=== PATIENT | male | born 1955 | race Caucasian/White ===

== ENCOUNTER 2019-08-19 16:20 | Inpatient (IN) ==
[2019-08-19] MEDS ORDERED: HYDROmorphone INJ 1 MG/ML SYRINGE IV PRN (16:48)
[2019-08-19] MEDS ORDERED: SODIUM CHLORIDE 0.9% 1000ML 1,000 ML IV ONE (16:48)
[2019-08-19] MEDS ORDERED: METOCLOPRAMIDE HCL INJ 5 MG/ML 2 ML VIAL IV STA (16:48)
--- NOTE | 2019-08-19 17:21 | XRay Report ---
XR chest 1V portable CLINICAL HISTORY: Sepsis COMPARISON STUDY: Chest radiograph June 14, 2019. FINDINGS: A left internal jugular Pifqyw-u-Nqwr is in place. There is a left lung calcified granuloma . Cardiomediastinal silhouette is stable. There is no pneumothorax or pleural effusion. Lung volumes are diminished. This is unchanged. Appearance of the chest is unchanged. IMPRESSION: No acute cardiopulmonary findings. Electronically signed by: Shorty Valdez M.D. 08/19/2019 5:20 PM
[2019-08-19 17:24] LABS: Basophils # (auto) 0.01 K/uL (0-0.2); Basophils % (auto) 0.2 %; Eosinophils # (auto) 0.02 K/uL (0-0.5); Eosinophils % (auto) 0.3 %; Hemoglobin 15.8 g/dL (14.0-18.0); Immature Granulocytes # (auto) 0.01 K/uL (0.00-0.02); Immature Granulocytes % (auto) 0.2 %; Lymphocytes # (auto) 1.99 K/uL (1.2-3.4); Lymphocytes % (auto) 30.6 %; Mean Corpuscular Hemoglobin 31.7 pg (25-34); Mean Corpuscular Hgb Conc 35.1 g/dL (32-36); Mean Corpuscular Volume 90.2 fL (80-100); Mean Platelet Volume 8.9 fL (7.4-10.4); Monocytes # (auto) 0.77 K/uL (0.11-0.59); Monocytes % (auto) 11.8 %; Neutrophils % (auto) 56.9 %; Platelet Count 161 K/uL (130-400); RDW Coefficient of Variation 14.9 % (11.5-14.5); RDW Standard Deviation 48.9 fL (36.4-46.3); Red Blood Count 4.99 M/uL (4.7-6.1)
[2019-08-19 17:37] LABS: iSTAT Creatinine 1.4 mg/dl (0.6-1.3); iSTAT Hemoglobin 15.6 g/dl (14.0-18.0); iSTAT Ionized Calcium 1.02 mmol/l (1.12-1.32)
[2019-08-19 17:41] LABS: Alanine Aminotransferase 37 U/L (12-78); Albumin Level 3.4 gm/dl (3.4-5.0); Aspartate Aminotransferase 27 U/L (15-37); BUN Creatinine Ratio 12.8 (10-20); Blood Urea Nitrogen 18 mg/dl (7-18); Calcium 8.8 mg/dl (8.5-10.1); Carbon Dioxide 29 mmol/L (21-32); Chloride 103 mmol/L (98-107); Est GFR (African American) 60.4; Est GFR (Non-African American) 52.1; Glucose 156 mg/dl (70-99); Potassium 3.1 mmol/L (3.5-5.1); Sodium 139 mmol/L (136-145)
[2019-08-19 17:47] LABS: Albumin Globulin Ratio 0.9 (0.9-2); Alkaline Phosphatase 115 U/L (45-117); Bilirubin,Total 0.4 mg/dl (0.2-1); Creatine Kinase 23 U/L (39-308); Creatine Kinase MB < 1.0 ng/ml (0.5-3.6); Globulin 3.8 gm/dl (2.5-4.0); Total Protein 7.2 gm/dl (6.4-8.2); Troponin I < 0.015 ng/ml (0-0.045)
[2019-08-19 18:10] LABS: Prothrombin Time 10.6 Seconds (9.0-12.0)
[2019-08-19] MEDS ORDERED: POTASSIUM CHLORIDE 20 MEQ TABCR PO STA (18:11)
[2019-08-19] MEDS ORDERED: IOVERSOL 100ml IV PRN (18:14)
--- NOTE | 2019-08-19 18:33 | Emergency Department Note ---
Entered by Elsy Khan acting as a scribe for History of Present Illness General Chief complaint: Vomiting Stated complaint: PANCREATIC CANCER, THROWING UP FOR 4 DAYS Time Seen by Provider: 08/19/19 16:31 History of Present Illness Provider complaint: vomiting Onset (ago): day(s) 4 Pain Consistency: + other (worsening) Maximum Pain Intensity: 8 Quality: + other (vomiting) Relieved By: + none Associated symptoms: + other (vomiting is non-stop, nausea, biliary tube put in 4 days ago, blood in bilirubin discharge) Treatments prior to arrival: other (Zofran) The patient is a 64 year old male who presents to the ED with complaints of worsening vomiting that started 4 days ago. Per son, the vomiting has been intermittent the past few days, but it is now non-stop. Per son, the patient had a biliary tube replaced 4 days ago at [facility]. Per son, the patient has pancreatic cancer and receives chemotherapy on Tuesdays every other week. Per son, the patient has blood in his bilirubin discharge. The patient states that he tried to take a Zofran this morning for the nausea but he immediately vomited it up. The patient states that nothing is helping to control the vomiting. Home Medications Home Medications Medication Instructions Recorded Confirmed Type Combigan 1 drp OPB BID 05/24/19 08/19/19 History Lumigan 1 drp OPB PM 05/24/19 08/19/19 History doxazosin 2 mg PO HS 05/24/19 08/19/19 History Allergies Allergy/AdvReac Type Severity Reaction Status Date / Time aspirin AdvReac Mild Nausea Verified 08/19/19 18:06 Past Med/Surg History Social History (Updated 06/13/19 @ 11:53 by Lynette Yepez RN) Preferred Language: Romanian Communication Ability: Effective Forensic Psychiatrist Required: No Beliefs That Will Affect Care: None marital status: Single Current Living Situation: Family Current Living Situation Comment: with son current occupational status: employed Feels Safe at Home: Yes Safety Concerns: Feels Safe At This Time Smoking Status: Never smoker Second Hand Exposure: No ; Hx Alcohol Use: Yes Alcohol type: beer Hx Substance Use: No Review of Systems See HPI for pertinent positives & negatives. and A total of 10 systems reviewed and were otherwise negative Physical Exam Vital Signs Vital Signs - 24 hr 08/19/19 16:25 08/19/19 17:09 08/19/19 17:30 Temperature 36.3 C L Temperature Source Oral Pulse Rate 131 H 93 H Pulse Rate from SpO2 Sensor 92 H 105 H Respiratory Rate 20 13 14 Respiratory Depth Normal Blood Pressure 140/92 Blood Pressure Mean 108 Pulse Oximetry 97 97 98 Oxygen Delivery Method Room Air Sepsis Recent Fever Within 48 Hours No Sepsis New/Unexplained Change in Mental Status No Sepsis Action Taken by Nursing No Action Required 08/19/19 17:31 08/19/19 17:32 08/19/19 18:00 Temperature Temperature Source Pulse Rate 97 H 97 H 93 H Pulse Rate from SpO2 Sensor 97 H 99 H 93 H Respiratory Rate 12 13 18 Respiratory Depth Blood Pressure 123/85 137/95 Blood Pressure Mean 103 100 Pulse Oximetry 95 88 L 97 Oxygen Delivery Method Sepsis Recent Fever Within 48 Hours Sepsis New/Unexplained Change in Mental Status Sepsis Action Taken by Nursing 08/19/19 18:01 08/19/19 18:18 08/19/19 18:19 Temperature Temperature Source Pulse Rate 93 H 89 90 Pulse Rate from SpO2 Sensor 93 H 89 90 Respiratory Rate 22 14 17 Respiratory Depth Blood Pressure 137/91 Blood Pressure Mean 100 Pulse Oximetry 96 98 97 Oxygen Delivery Method Sepsis Recent Fever Within 48 Hours Sepsis New/Unexplained Change in Mental Status Sepsis Action Taken by Nursing 08/19/19 18:30 08/19/19 18:31 08/19/19 19:00 Temperature Temperature Source Pulse Rate 92 H 91 H 87 Pulse Rate from SpO2 Sensor 92 H 92 H 88 Respiratory Rate 19 19 13 Respiratory Depth Blood Pressure 128/86 134/95 Blood Pressure Mean 91 111 Pulse Oximetry 98 98 98 Oxygen Delivery Method Sepsis Recent Fever Within 48 Hours Sepsis New/Unexplained Change in Mental Status Sepsis Action Taken by Nursing 08/19/19 19:01 08/19/19 19:30 08/19/19 19:31 Temperature Temperature Source Pulse Rate 88 88 84 Pulse Rate from SpO2 Sensor 88 88 85 Respiratory Rate 14 14 15 Respiratory Depth Blood Pressure 136/95 Blood Pressure Mean 102 Pulse Oximetry 98 99 99 Oxygen Delivery Method Sepsis Recent Fever Within 48 Hours Sepsis New/Unexplained Change in Mental Status Sepsis Action Taken by Nursing 08/19/19 20:00 08/19/19 20:01 Temperature Temperature Source Pulse Rate 88 84 Pulse Rate from SpO2 Sensor 86 82 Respiratory Rate 15 16 Respiratory Depth Blood Pressure 172/110 H Blood Pressure Mean 127 Pulse Oximetry 96 97 Oxygen Delivery Method Sepsis Recent Fever Within 48 Hours Sepsis New/Unexplained Change in Mental Status Sepsis Action Taken by Nursing GENERAL: Awake, alert, well-appearing, and curled up in a position of comfort. HENT: Normocephalic, atraumatic. Oropharynx unremarkable. EYES: Normal conjunctiva. Sclera non-icteric. NECK: Supple. No nuchal rigidity. FROM. No JVD. RESPIRATORY: Clear to auscultation. CARDIAC: Regular rate, normal rhythm. Extremities warm and well perfused. Pulses equal. ABDOMEN: Soft, non-distended. Mild tenderness to palpation throughout abdomen. No rebound or guarding. No masses. Biliary drain in place, green drainage present. RECTAL: Deferred. MUSCULOSKELETAL: Chest examination reveals no tenderness. The back is symmetrical on inspection without obvious abnormality. There is no CVA tenderness to palpation. No joint edema. LOWER EXTREMITIES: Calves are equal size bilaterally and non-tender. No edema. No discoloration. NEURO: Normal sensorium. No sensory or motor deficits noted. SKIN: No rash or jaundice noted. Course Course 1639: Past medical records reviewed. The patient was evaluated in room B04B. A complete history and physical exam was performed. 1713: I discussed the patient's case with Dr. Loera- [facility]. He states that we absolutely need a cat scan. 1843: I discussed the patient's [facility]. He states that the patient need to be transferred to [facility] for surgery, 1906: I updated the patient and he states that he would prefer to go to [facility] for surgery, 1912: I discussed the patient's case with Dr. Loera from [facility] and he states that the patient is accepted at [facility] but they do not have a bed available, so they would like us to admit the patient here until they do. 2018: I discussed the patient's case with Dr. Shay- [facility] Hospitalist. He will evaluate the patient for further management until [facility] has a bed available. Consultations Consultation #1: I discussed the patient's case with Dr. Loera- [facility]. He states that we absolutely need a cat scan. Time: 17:13 Consultation #2: I discussed the patient's case with [facility]. He states that the patient need to be transferred to [facility] for surgery, Time: 19:43 Consultation #3: I discussed the patient's case with Dr. Shay- [facility] Hospitalist. He will evaluate the patient for further management until [facility] has a bed available. Time: 20:18 Administered Medications Heparin Sodium (Porcine) (Heparin Sodium (Porcine)) 5,000 units SQ Q12 KAY Stop: 09/18/19 22:33 Last Admin: 08/19/19 23:09 Dose: 5,000 units Documented by: [id number] Cosigned by: [id number] Lactated Ringer's (Lr) 1,000 mls @ 125 mls/hr IV .Q8H KAY Stop: 08/20/19 14:33 Last Admin: 08/19/19 22:48 Dose: 125 mls/hr Documented by: [id number] Acetaminophen (Ofirmev) 1,000 mg in 100 mls @ 400 mls/hr IV Q8H PRN PRN Reason: Pain or Fever Stop: 08/22/19 22:33 Last Infusion: 08/19/19 23:07 Dose: 0 mls/hr Documented by: [id number] Admin: 08/19/19 22:42 Dose: 400 mls/hr Documented by: [id number] Ioversol (Optiray 320 100ml) 93 ml IV ONCE PRN PRN Reason: Interaction Checking Stop: 08/23/19 18:13 Last Admin: 08/19/19 18:15 Dose: 93 ml Documented by: [id number] Discontinued Medications Albuterol (Ventolin 0.083% 2.5mg/3ml) 2.5 mg NEB NOW STA Stop: 08/19/19 18:35 Last Admin: 08/19/19 18:47 Dose: Not Given Documented by: [id number] Albuterol (Ventolin Hfa) 2 puffs INH NOW ONE Stop: 08/19/19 18:35 Last Admin: 08/19/19 19:00 Dose: Not Given Documented by: [id number] Hydromorphone HCl (Dilaudid) 1 mg IV Q15M PRN PRN Reason: Pain Stop: 09/02/19 16:47 Last Admin: 08/19/19 17:25 Dose: 1 mg Documented by: [id number] Sodium Chloride (Nss 1000ml) 1,000 mls @ 999 mls/hr IV .Q1H1M ONE Stop: 08/19/19 17:48 Last Infusion: 08/19/19 18:31 Dose: 0 mls/hr Documented by: [id number] Admin: 08/19/19 17:23 Dose: 999 mls/hr Documented by: [id number] Pantoprazole Sodium 80 mg/ (Dextrose) 120 mls @ 480 mls/hr IV 2000 KAY Stop: 08/19/19 22:00 Last Infusion: 08/19/19 21:08 Dose: 0 mls/hr Documented by: [id number] Admin: 08/19/19 20:49 Dose: 480 mls/hr Documented by: [id number] Pantoprazole Sodium 40 mg/ (Dextrose) 100 mls @ 20 mls/hr IV Q5H KAY Stop: 08/20/19 04:44 Last Infusion: 08/20/19 00:30 Dose: 0 mls/hr Documented by: [id number] Admin: 08/19/19 21:08 Dose: 20 mls/hr Documented by: [id number] Piperacillin Sod/Tazobactam Sod (Zosyn) 4.5 gm in 120 mls @ 240 mls/hr IV NOW ONE Stop: 08/19/19 20:07 Last Infusion: 08/19/19 22:13 Dose: 0 mls/hr Documented by: [id number] Admin: 08/19/19 21:28 Dose: 240 mls/hr Documented by: [id number] Lorazepam (Ativan) 1 mg in 2 mls @ 2 mls/min IV NOW STA Stop: 08/19/19 20:07 Last Admin: 08/19/19 20:47 Dose: 2 mls/min Documented by: [id number] Potassium Chloride (K Stevan / Wtr) 10 meq in 100 mls @ 100 mls/hr IV Q1H KAY Stop: 08/19/19 22:59 Last Admin: 08/20/19 00:16 Dose: 100 mls/hr Documented by: [id number] Infusion: 08/20/19 00:16 Dose: 100 mls/hr Documented by: [id number] Admin: 08/19/19 23:17 Dose: 100 mls/hr Documented by: [id number] Famotidine 20 mg/ Syringe 5 mls @ 2.5 mls/min IV ONE ONE Stop: 08/19/19 22:35 Last Admin: 08/19/19 23:07 Dose: 2.5 mls/min Documented by: [id number] Methylprednisolone (Solumedrol) 125 mg IV NOW STA Stop: 08/19/19 18:35 Last Admin: 08/19/19 19:00 Dose: Not Given Documented by: [id number] Metoclopramide HCl (Reglan) 10 mg IV NOW STA Stop: 08/19/19 16:49 Last Admin: 08/19/19 17:22 Dose: 10 mg Documented by: [id number] Phenol (Chloraseptic 1.4% [place]) 2 sprays MT NOW STA Stop: 08/19/19 20:07 Last Admin: 08/19/19 20:47 Dose: 2 sprays Documented by: [id number] Potassium Chloride (Klor-Con M20) 40 meq PO NOW STA Stop: 08/19/19 18:12 Last Admin: 08/19/19 18:39 Dose: 40 meq Documented by: [id number] Medical Decision Making Differential Diagnosis Differential diagnosis: Etiologies such as gastroenteritis, food borne illness, infections, appendicitis, diverticulitis, inflammatory bowel disease, obstruction, GI bleed, biliary pathology, cardiac process, intracranial process, as well as others were entertained. Medical Records Attestation: I reviewed the patient's medical records. Home Medications Current Medication List: was personally reviewed by me Laboratory Data Attestation: I reviewed the patient's lab results. Result diagrams: 08/19/19 16:49 08/19/19 16:49 Lab Results 08/19/19 08/19/19 08/19/19 Range/Units 16:49 16:49 16:49 WBC 6.50 (4.8-10.8) K/uL RBC 4.99 (4.7-6.1) M/uL Hgb 15.8 (14.0-18.0) g/dL POC Hgb (14.0-18.0) g/dl Hct 45.0 (42-52) % POC Hct (42-52) % MCV 90.2 (80-100) fL MCH 31.7 (25-34) pg MCHC 35.1 (32-36) g/dL RDW Std Deviation 48.9 H (36.4-46.3) fL RDW Coeff of June 14.9 H (11.5-14.5) % Plt Count 161 (130-400) K/uL MPV 8.9 (7.4-10.4) fL Immature Gran % (Auto) 0.2 % Neut % (Auto) 56.9 % Lymph % (Auto) 30.6 % Webb % (Auto) 11.8 % Eos % (Auto) 0.3 % Baso % (Auto) 0.2 % Immature Gran # (Auto) 0.01 (0.00-0.02) K/uL Neut # (Auto) 3.70 (1.4-6.5) K/uL Lymph # (Auto) 1.99 (1.2-3.4) K/uL Webb # (Auto) 0.77 H (0.11-0.59) K/uL Eos # (Auto) 0.02 (0-0.5) K/uL Baso # (Auto) 0.01 (0-0.2) K/uL PT Cancelled INR Cancelled APTT Cancelled PTT Ratio Cancelled POC Sodium (135-144) mEq/L Sodium 139 (136-145) mmol/L POC Potassium (3.3-5.0) mEq/L Potassium 3.1 L (3.5-5.1) mmol/L POC Chloride (101-112) mEq/L Chloride 103 (98-107) mmol/L Carbon Dioxide 29 (21-32) mmol/L POC Total CO2 (24-31) mEq/l Anion Gap 7.0 (3-11) POC Anion Gap (16-25) mmol/L POC BUN (7-18) mg/dl BUN 18 (7-18) mg/dl Creatinine 1.43 H (0.6-1.4) mg/dl POC Creatinine (0.6-1.3) mg/dl Est Cr Clr Drug Dosing Not Reportable Est GFR ( Amer) 60.4 Est GFR (Non-Af Amer) 52.1 BUN/Creatinine Ratio 12.8 (10-20) Glucose 156 H (70-99) mg/dl POC Glucose (other) (70-99) mg/dl Lactate (0.4-2.0) mmol/L Calcium 8.8 (8.5-10.1) mg/dl POC Ioniz Calcium Fatuma (1.12-1.32) mmol/l Total Bilirubin 0.4 (0.2-1) mg/dl AST 27 (15-37) U/L ALT 37 (12-78) U/L Alkaline Phosphatase 115 (45-117) U/L Total Creatine Kinase 23 L (39-308) U/L CK-MB (CK-2) < 1.0 (0.5-3.6) ng/ml CK/CKMB % Calc TNP Troponin I < 0.015 (0-0.045) ng/ml Total Protein 7.2 (6.4-8.2) gm/dl Albumin 3.4 (3.4-5.0) gm/dl Globulin 3.8 (2.5-4.0) gm/dl Albumin/Globulin Ratio 0.9 (0.9-2) 08/19/19 08/19/19 08/19/19 Range/Units 16:49 17:19 17:39 WBC (4.8-10.8) K/uL RBC (4.7-6.1) M/uL Hgb (14.0-18.0) g/dL POC Hgb 15.6 (14.0-18.0) g/dl Hct (42-52) % POC Hct 46 (42-52) % MCV (80-100) fL MCH (25-34) pg MCHC (32-36) g/dL RDW Std Deviation (36.4-46.3) fL RDW Coeff of June (11.5-14.5) % Plt Count (130-400) K/uL MPV (7.4-10.4) fL Immature Gran % (Auto) % Neut % (Auto) % Lymph % (Auto) % Webb % (Auto) % Eos % (Auto) % Baso % (Auto) % Immature Gran # (Auto) (0.00-0.02) K/uL Neut # (Auto) (1.4-6.5) K/uL Lymph # (Auto) (1.2-3.4) K/uL Webb # (Auto) (0.11-0.59) K/uL Eos # (Auto) (0-0.5) K/uL Baso # (Auto) (0-0.2) K/uL PT 10.6 INR 1.0 APTT PTT Ratio POC Sodium 139 (135-144) mEq/L Sodium (136-145) mmol/L POC Potassium 3.0 L (3.3-5.0) mEq/L Potassium (3.5-5.1) mmol/L POC Chloride 101 (101-112) mEq/L Chloride (98-107) mmol/L Carbon Dioxide (21-32) mmol/L POC Total CO2 26 (24-31) mEq/l Anion Gap (3-11) POC Anion Gap 15.0 L (16-25) mmol/L POC BUN 18 (7-18) mg/dl BUN (7-18) mg/dl Creatinine (0.6-1.4) mg/dl POC Creatinine 1.4 H (0.6-1.3) mg/dl Est Cr Clr Drug Dosing Est GFR ( Amer) Est GFR (Non-Af Amer) BUN/Creatinine Ratio (10-20) Glucose (70-99) mg/dl POC Glucose (other) 155 H (70-99) mg/dl Lactate 2.0 (0.4-2.0) mmol/L Calcium (8.5-10.1) mg/dl POC Ioniz Calcium Fatuma 1.02 L (1.12-1.32) mmol/l Total Bilirubin (0.2-1) mg/dl AST (15-37) U/L ALT (12-78) U/L Alkaline Phosphatase (45-117) U/L Total Creatine Kinase (39-308) U/L CK-MB (CK-2) (0.5-3.6) ng/ml CK/CKMB % Calc Troponin I (0-0.045) ng/ml Total Protein (6.4-8.2) gm/dl Albumin (3.4-5.0) gm/dl Globulin (2.5-4.0) gm/dl Albumin/Globulin Ratio (0.9-2) Imaging Data Radiologist's Impression: Radiology results as stated below per my review and t he radiologist's interpretation: XR chest 1V portable CLINICAL HISTORY: Sepsis COMPARISON STUDY: Chest radiograph June 14, 2019. FINDINGS: A left internal jugular Cjkwhb-k-Ncob is in place. There is a left lung calcified granuloma. Cardiomediastinal silhouette is stable. There is no pneumothorax or pleural effusion. Lung volumes are diminished. This is unchanged. Appearance of the chest is unchanged. IMPRESSION: No acute cardiopulmonary findings. Electronically signed by: Shorty Valdez M.D. 08/19/2019 5:[address] OF THE ABDOMEN AND PELVIS WITH CONTRAST CLINICAL HISTORY: Abdominal pain. Biliary drain. Pancreatic cancer. COMPARISON STUDY: CT of the abdomen and pelvis May 24, 2019. TECHNIQUE: Following IV administration of Optiray-320, axial images of the abdomen and pelvis were obtained from the lung bases to the proximal femurs. Images were reviewed in the axial, sagittal, and coronal planes. IV contrast was administered without complication. Automated exposure control was utilized for the study. A dose lowering technique was utilized adhering to the principles of ALARA. CT DOSE: 889.95 mGy.cm FINDINGS: Left-sided gynecomastia is noted. There is mild elevation of the left hemidiaphragm. Calcified granulomas within the liver are noted. No suspicious hepatic lesions are identified. A percutaneous biliary drain extending through the lateral segment of the left lobe is appropriately positioned. The tip is within the duodenum. There is no biliary ductal dilatation. There is gas and a stone within the gallbladder which is not distended. There is adenomyomatosis of the gallbladder fundus. Mild pancreatic ductal dilatation is noted with pancreatic glandular atrophy. Mild peripancreatic infiltration is noted. There is no peripancreatic fluid collection. Mildly enlarged peripancreatic lymph nodes have slightly decreased in size since CT of May 24, 2019. Index node measures 1.3 cm in short axis diameter. It previously measured 1.5 cm. There has been interval development of moderate gastric distention. The stomach is fluid- filled. A 1.5 cm fluid and gas containing focus adjacent to the pancreatic head likely reflects a portion of the duodenum. Adjacent caliber change of the duodenum is noted. These findings raise the possibility of a duodenal obstruc tion. Major vasculature is patent. There is no bowel obstruction. The appendix is normal. There is oral contrast within the distal colon and rectum. Prostate is moderately enlarged. There are no suspicious osseous lesions. IMPRESSION: 1. Distended fluid-filled stomach, a new finding since prior CT with apparent caliber change at the level of the second duodenum. The findings raise the possibility of a duodenal obstruction. 2. Appropriately positioned percutaneous biliary catheter. No biliary ductal dilatation. Gas and a stone within the gallbladder. 3. Mild pancreatic ductal dilatation with apparent caliber change within the pancreatic head, possibly due to the known tumor which is not well visualized on this exam. Mild peripancreatic infiltration which could be correlated with lipase. 4. Interval decrease in size of peripancreatic and mesenteric lymph nodes since prior exam. Electronically signed by: Shorty Valdez M.D. 08/19/2019 6:34 PM Blood Pressure Blood Pressure Findings: Elevated blood pressure Blood Pressure Disposition: further management by hospitalist KRYSTINA Ling This is a 64-year-old male who presents emergency department complaining of nausea and severe vomiting ever since a biliary stent was placed. I will note that the patient does not have an elevation in his white blood cell count has a normal renal profile has a normal liver profile. Patient's potassium was repleted here via IV in the emergency department. Using shared medical decision making with the patient I recommended a CAT scan of the abdomen pelvis. The patient at first wished for me to discuss this with [facility]. This was done with the surgeon on-call who recommended a CAT scan of the abdomen and pelvis. CAT scan of the abdomen pelvis is concerning for a stomach obstruction at the duodenum. Because of this I did recommend an NG tube. I did discuss my findings with [facility] is that this is where the family would like to go however [facility] does not have a bed available. Based on this I did discuss the case with the hospitalist service pending a transfer. Patient and family were in agreement with the treatment plan. Impression & Plan Duodenal obstruction, Pancreatic cancer, Hypertension Discharge Plan Visit Data *Final* Discharge Date/Time: 08/19/19 22:15 Chief Complaint: Vomiting Stated Complaint: PANCREATIC CANCER, THROWING UP FOR 4 DAYS ED Provider: Savage Thomas Discharge Problem: Duodenal obstruction, Pancreatic cancer, Hypertension Patient Disposition: Admitted As Inpatient Discharge Instructions Interventions: ED Discharge Assessment Last Done: 08/19/19 22:15 Discharge Problem: Pancreatic cancer Qualifiers: Pancreatic malignancy location: unspecified Qualified Code(s): C25.9 - Malignant neoplasm of pancreas, unspecified Hypertension Qualifiers: Hypertension type: unspecified Qualified Code(s): I10 - Essential (primary) hypertension The scribe's documentation has been prepared under my direction and personally reviewed by me in its entirety. I confirm that the note above accurately reflects all work, treatment, procedures, and medical decision making performed by me.
[2019-08-19] MEDS ORDERED: methylPREDNISolone 125 MG/2 ML VIAL IV STA (18:34)
[2019-08-19] MEDS ORDERED: ALBUTEROL 0.083% NEBU SOLN 3 ML VIAL NEB STA (18:34)
[2019-08-19] MEDS ORDERED: ALBUTEROL HFA 8 GM INHALER INH ONE (18:34)
--- NOTE | 2019-08-19 18:36 | CT Scan Report ---
CT OF THE ABDOMEN AND PELVIS WITH CONTRAST CLINICAL HISTORY: Abdominal pain. Biliary drain. Pancreatic cancer. COMPARISON STUDY: CT of the abdomen and pelvis May 24, 2019. TECHNIQUE: Following IV administration of Optiray-320, axial images of the abdomen and pelvis were ob tained from the lung bases to the proximal femurs. Images were reviewed in the axial, sagittal, and c oronal planes. IV contrast was administered without complication. Automated exposure control was uti lized for the study. A dose lowering technique was utilized adhering to the principles of ALARA. CT DOSE: 889.95 mGy.cm FINDINGS: Left-sided gynecomastia is noted. There is mild elevation of the left hemidiaphragm. Calcif ied granulomas within the liver are noted. No suspicious hepatic lesions are identified. A percutaneo us biliary drain extending through the lateral segment of the left lobe is appropriately positioned. The tip is within the duodenum. There is no biliary ductal dilatation. There is gas and a stone withi n the gallbladder which is not distended. There is adenomyomatosis of the gallbladder fundus. Mild pa ncreatic ductal dilatation is noted with pancreatic glandular atrophy. Mild peripancreatic infiltrati on is noted. There is no peripancreatic fluid collection. Mildly enlarged peripancreatic lymph nodes have slightly decreased in size since CT of May 24, 2019. Index node measures 1.3 cm in short a xis diameter. It previously measured 1.5 cm. There has been interval development of moderate gastric distention. The stomach is fluid-filled. A 1.5 cm fluid and gas containing focus adjacent to the panc reatic head likely reflects a portion of the duodenum. Adjacent caliber change of the duodenum is not ed. These findings raise the possibility of a duodenal obstruction. Major vasculature is patent. Ther e is no bowel obstruction. The appendix is normal. There is oral contrast within the distal colon and rectum. Prostate is moderately enlarged. There are no suspicious osseous lesions. IMPRESSION: 1. Distended fluid-filled stomach, a new finding since prior CT with apparent caliber change at the l evel of the second duodenum. The findings raise the possibility of a duodenal obstruction. 2. Appropriately positioned percutaneous biliary catheter. No biliary ductal dilatation. Gas and a st one within the gallbladder. 3. Mild pancreatic ductal dilatation with apparent caliber change within the pancreatic head, possibl y due to the known tumor which is not well visualized on this exam. Mild peripancreatic infiltration which could be correlated with lipase. 4. Interval decrease in size of peripancreatic and mesenteric lymph nodes since prior exam. Electronically signed by: Shorty Valdez M.D. 08/19/2019 6:34 PM
[2019-08-19] MEDS ORDERED: PIPERACILL/TAZOBAC CONSULT ACTIVE PRN (19:38)
[2019-08-19] MEDS ORDERED: PIPERACILLIN/TAZOBACTAM 4.5 GM/120 ML BAG IV ONE (19:38)
[2019-08-19] MEDS ORDERED: PANTOprazole 40 MG in DEXTROSE 5% 100 ML IV SCH (19:45)
--- NOTE | 2019-08-19 19:55 | History & Physical Report ---
Date of Service August 19, 2019 Assessment & Plan (1) Duodenal obstruction: Mr. Milton is a 64-year-old male with a past medical history of pancreatic adenocarcinoma, hypertension, hypercholesterolemia, BPH and obstructive sleep apnea who presents to [facility] due to a 5-day history of feeling unwell, with abdominal pain, and nausea. Today, he had 5 episodes of vomiting, without the presence of blood, which prompted him to come into the emergency department. ED course: 10 mg IV Reglan, 1 L normal saline bolus, 40 mEq potassium chloride, Ventolin nebulizer, 125 mg IV Solu-Medrol, Ventolin inhaler, 1 mg IV Dilaudid, 80 mg IV pantoprazole bolus, and drip initiated, 4.5 g IV Zosyn, 10 mEq of potassium chloride IV x2 bags Duodenal obstruction -Admit to med/surg -CT abdomen and pelvis shows distended fluid-filled stomach, suggestive of d uodenal obstruction. His percutaneous biliary catheter is appropriately positioned. -N.p.o., NG tube placed in ER, confirming placement with x-ray -Awaiting transfer to [facility]. They do not have a bed as yet, but have accepted him in transfer -IV Tylenol and Dilaudid as needed for pain, maintenance IVF started, Zofran as needed for nausea -GI prophylaxis with IV famotidine History of pancreatic cancer -Follows with [facility] -Had a biliary tube replaced 08/15/2019 -Currently on round 3 out of 12 of chemotherapy. Due to receive next chemotherapy on 08/22/2019 Acute kidney injury -Creatinine 1.43 on admission, elevated from normal baseline -Likely prerenal etiology in the setting of poor appetite and vomiting -Given IVF in ER, will continue maintenance IVF with LR at 125 mLs per hour x2 bags -Recheck BMP in a.m. Hypokalemia -Potassium 3.1 on admission -10 mEq of potassium chloride ordered IV x2 bags in ER -recheck tomorrow Hypertension -Hold home antihypertensives given n.p.o -Blood pressure was initially elevated upon arrival to emergency department, however has improved with pain control -Hydralazine 10 mg IV as needed for systolic blood pressure greater than 180 Hyperlipidemia -Patient does not appear to be on medications for this at home BPH -Hold home doxazosin given n.p.o. Obstructive sleep apnea -Wears CPAP at home, will not order here given patient currently has NG tube in place CODE STATUS: Full DVT prophylaxis: Heparin 5000 units subcutaneous twice daily Disposition: Admit to med/surg. Awaiting bed at [facility] (2) Pancreatic cancer: (3) Hypertension: (4) Hyperlipidemia: (5) Obstructive sleep apnea: (6) BPH (benign prostatic hyperplasia): History of Present Illness Chief Complaint: Small bowel obstruction Primary Care Provider: Vincent Marie Mr. Milton is a 64-year-old male with a past medical history of pancreatic adenocarcinoma, hypertension, hypercholesterolemia, BPH and obstructive sleep apnea who presents to [facility] due to a 5-day history of feeling unwell, with abdominal pain, and nausea. Today, he had 5 episodes of vomiting, without the presence of blood, which prompted him to come into the emergency department. He notes that he also has diffuse abdominal pain. He states his last bowel movement was this morning, however was smaller than usual for him. He has had poor appetite since Wednesday, and is only tolerated small amounts of soup and some water. He denies any fever or chills, or urinary symptoms. With regards to his pancreatic adenocarcinoma, this was diagnosed in May 2019. He follows with [facility], and most recently had a biliary tube replacement on 08/15/2019. He is receiving chemotherapy. He is currently on his third out of 12 cycle of chemotherapy, and is due to receive this on 08/22/2019. Allergies Allergy/AdvReac Type Severity Reaction Status Date / Time aspirin AdvReac Mild Nausea Verified 08/19/19 18:06 Home Medications Home Medications Medication Instructions Recorded Confirmed Type Combigan 1 drp OPB BID 05/24/19 08/19/19 History Lumigan 1 drp OPB PM 05/24/19 08/19/19 History doxazosin 2 mg PO HS 05/24/19 08/19/19 History Past Med/Surg History Social History (Updated 06/13/19 @ 11:53 by Lynette Yepez RN) Preferred Language: Kazakh Communication Ability: Effective Smearer Required: No Beliefs That Will Affect Care: None marital status: Single Current Living Situation: Family Current Living Situation Comment: with son current occupational status: employed Feels Safe at Home: Yes Safety Concerns: Feels Safe At This Time Smoking Status: Never smoker Second Hand Exposure: No ; Hx Alcohol Use: Yes Alcohol type: beer Hx Substance Use: No Review of Systems Constitutional: + fatigue and + anorexia; no fever and no chills Respiratory: no cough and no dyspnea Cardiovascular: no chest pain, no syncope, no edema and no calf pain Gastrointestinal: + abdominal pain, + nausea and + vomiting; no change in bowel habits and no melena Genitourinary: no dysuria and no difficulty urinating Integumentary: no rash and no lesions Physical Exam Constitutional: WD/WN, vitals as above NG tube in place Eyes: PERRL, conjunctivae normal, anicteric sclerae ENMT: external ear and nose normal, oropharynx normal Respiratory: normal respiratory effort, lungs clear to auscultation Cardiovascular: RRR, no murmur, no edema Gastrointestinal (Abdomen): Inspection/Auscultation: + abdomen distended Percussion/Palpation: + abdomen tender (Tender throughout abdomen); no guarding and abdomen not rigid Biliary drain in place, draining dark green/brown liquid Musculoskeletal: no cyanosis or clubbing, extremities motor strength 5/5 Skin: no rashes, warm and dry Neurologic: PERRL, EOMI, accommodation nl, no face palsy, no dysarthria Psychiatric: A+Ox3, euthymic affect Results & Data Vital Signs (Past 12 Hours) Vital Signs Temp Pulse Resp BP Pulse Ox 08/19/19 18:18 89 14 137/91 98 08/19/19 18:01 93 H 22 96 08/19/19 18:00 93 H 18 137/95 97 08/19/19 17:32 97 H 13 88 L 08/19/19 17:31 97 H 12 123/85 95 08/19/19 17:30 14 98 08/19/19 17:09 93 H 13 97 08/19/19 16:25 36.3 C L 131 H 20 140/92 97 Supervising Physician Co-Signing Physician Notes Attending addendum: I have physically seen this patient, have supervised the medical residents activities, and agree with the H&P unless as otherwise noted. Assessment and Plan: Duodenal obstruction/status post percutaneous biliary catheter/pancreatic cancer- Admit to [facility] N.p.o. NG tube to low intermittent suction Zosyn 4.5 g IV every 8 hours. Famotidine 20 mg IV every 12 hours. For transfer to [facility] where initial surgery and procedures have been performed. Chemotherapy round 3 of 12 completed. Follow serial CBC with differential, chemistry profile, magnesium levels. Follow blood cultures Dilaudid 0.5 mg IV every 3 hours as needed severe pain. Remainder of orders and notations as noted.. Resident Activity Tracking Resident Involvement: Resident Care Provided Care Provided: Adult [facility] Medicine
[2019-08-19] MEDS ORDERED: PANTOprazole 80 MG in DEXTROSE 5% 100 ML IV SCH (20:00)
[2019-08-19] MEDS ORDERED: CHLORASEPTIC 1.4% SOLN 180 ML BTL MT STA (20:06)
[2019-08-19] MEDS ORDERED: LORazepam 1 MG/2 ML VIAL IV STA (20:06)
--- NOTE | 2019-08-19 21:49 | XRay Report ---
KUB CLINICAL HISTORY: NG placement COMPARISON STUDY: CT of the abdomen and pelvis performed earlier today. FINDINGS: There is contrast within both collecting systems from recent contrast-enhanced CT. The tip of the nasogastric tube projects over the body of the stomach. IMPRESSION: Tip of nasogastric tube projects over the body of the stomach. Electronically signed by: Shorty Valdez M.D. 08/19/2019 9:47 PM
[2019-08-19] MEDS ORDERED: HydrALAZINE HCL 20 MG/ML VIAL IV PRN (22:34)
[2019-08-19] MEDS ORDERED: FAMOTIDINE 20 MG in SYRINGE 3 ML IV ONE (22:34)
[2019-08-19] MEDS: ACETAMINOPHEN 1,000 MG/100 ML VIAL IV PRN (22:42)
[2019-08-19] MEDS: LACTATED RINGER'S 1,000 ML IV SCH (22:48)
[2019-08-19] MEDS: HEPARIN SOD 5,000 UNIT/0.5 ML VIAL SQ SCH (23:09)
[2019-08-19] MEDS: POTASSIUM CHLORIDE / WTR 10 MEQ/100 ML PLCT IV SCH (23:17)
[2019-08-20] MEDS ORDERED: HEPARIN 100 UNIT/ML 5ML FLUSH FLUSH PRN (00:13)
[2019-08-20] MEDS: POTASSIUM CHLORIDE / WTR 10 MEQ/100 ML PLCT IV SCH (00:16)
[2019-08-20] MEDS: ONDANSETRON INJ 2 MG/ML 2 ML VIAL IV PRN ×3 (02:31→14:07)
[2019-08-20] MEDS: HYDROmorphone INJ 0.5 MG/0.5 ML SYR IV PRN ×4 (02:32→15:30)
[2019-08-20] MEDS: LACTATED RINGER'S 1,000 ML IV SCH ×3 (06:32→21:09)
[2019-08-20 06:59] LABS: BUN Creatinine Ratio 11.1 (10-20); Calcium 7.8 mg/dl (8.5-10.1); Creatinine Clr Calc Pharmacy 67.5 ml/min; Est GFR (African American) 69.7; Est GFR (Non-African American) 60.2; Potassium 3.7 mmol/L (3.5-5.1)
[2019-08-20] MEDS: BRIMONIDINE TARTRATE/TIMOLOL OPB SCH ×2 (08:02→21:11)
[2019-08-20] MEDS: BRINZOLAMIDE (AZOPT) OPS 10 ML BTL OPL SCH ×2 (08:02→21:12)
[2019-08-20] MEDS: HEPARIN SOD 5,000 UNIT/0.5 ML VIAL SQ SCH ×2 (08:03→21:20)
[2019-08-20] MEDS: ACETAMINOPHEN 1,000 MG/100 ML VIAL IV PRN ×2 (08:15→18:27)
[2019-08-20] MEDS ORDERED: Nursing to Pharmacy Communication ONE (11:07)
--- NOTE | 2019-08-20 16:51 | Hospitalist Progress Note ---
Date of Service August 20, 2019 Assessment & Plan (1) Duodenal obstruction: Mr. Milton is a 64-year-old male with a past medical history of pancreatic adenocarcinoma admitted 08/19/19 for evaluation of 5-day history of abdominal pain and nausea, found to have duodenal obstruction on CT. He receives his oncologic care at [facility] - he was accepted as a transfer there, awaiting bed availability. Duodenal obstruction -CT of abdomen and pelvis on admission showed distended fluid-filled stomach, suggestive of duodenal obstruction. - it was discussed with patient that plausible cause of obstruction was proximal metastasis of known adenocarcinoma, although this would likely be explored via endoscopic procedure or MRI once he gets to [place] - percutaneous biliary catheter is appropriately positioned per KUB study -N.p.o., NG tube in place with suction; appropriate position confirmed via Chest x-ray -IV Tylenol and Dilaudid as needed for pain, maintenance IVF, Zofran as needed for nausea -GI prophylaxis with IV famotidine History of pancreatic cancer - currently undergoing chemo -Follows with [facility] -Had a biliary tube replaced 08/15/2019 -on round 3 out of 12 of chemotherapy. Due to receive next chemotherapy on 08/22/2019 Acute kidney injury -resolving -Creatinine 1.43 on admission (elevated from known baseline); down to 1.22 today -Likely prerenal etiology in the setting of poor PO intake and recent vomiting -continue maintenance IVF with LR at 125 mLs per hour - BMP in am Hypokalemia - resolved -Potassium 3.1 on admission, improved to 3.7 today Hypertension -Hold home antihypertensive (doxazosin) given n.p.o status -BP 138/84 -Hydralazine 10 mg IV as needed for systolic blood pressure greater than 180 Hyperlipidemia -Patient does not appear to be on medications for this at home BPH -Hold home doxazosin given n.p.o. Obstructive sleep apnea -Wears CPAP at home, will not order here given patient currently has NG tube in place CODE STATUS: Full FENGI: NPO DVT prophylaxis: Heparin 5000 units subcutaneous twice daily Disposition: Admit to med/surg. Awaiting bed at [facility] (2) Pancreatic cancer: (3) Hypertension: (4) Hyperlipidemia: (5) Obstructive sleep apnea: (6) BPH (benign prostatic hyperplasia): Supervising Physician Co-Signing Physician Notes I personally examined the patient and verified all friedman points of history and exam, discussed case, and agree with decision making with Dr Hernandez. Feeling okay. Still has NG tube in and notes that he is needing pain and nausea medicines with a good deal of frequency, but that overall his symptoms are controlled. Awaiting transfer to [place], accepted but does not yet have a bed available. Vitals noted, in general he is awake and alert pleasant no distress. HEENT normocephalic atraumatic mucous membranes moist. NG tube in place without signs of breakdown. Right now there is nothing in the canister, but it looks clean li ke it is just been changed. His abdomen is fortunately quite soft nondistended nontender no focal tenderness no masses no organomegaly no guarding no rebound no rigidity. Skin shows no rashes no pallor or icterus. Duodenal obstructionunfortunately the biggest concern is that this would relate to his pancreatic cancer. Fortunately he has been stabilized/temporized by NG tube, antiemetics, pain control, supportive carecontinue all of the above pending bed availability at [facility]. Otherwise as above. DVT prophylaxisheparin subcu. Subjective No acute events since admission. Reports good pain/nausea control. NPO and connected to go NG suction, so not ambulting today. Review of Systems Review of Systems: All systems reviewed & are unremarkable except as noted in HPI & below Physical Exam Constitutional: WD/WN, vitals as above + ill appearing and cooperative Eyes: + anicteric sclerae ENMT: external ear and nose normal, oropharynx normal NG tube in place Neck: normal visual inspection Respiratory: normal respiratory effort, lungs clear to auscultation Auscultation: no rales, no rhonchi, no wheezes and no pleural rub Cardiovascular: RRR, no murmur, no edema Heart Sounds: normal S1 and normal S2 Gastrointestinal (Abdomen): Inspection/Auscultation: + abdomen distended, + abdominal surgical drain present (percutaneous bilary catheter placed; draining bilious fluid ) and + hypoactive bowel sounds Percussion/Palpation: abdomen soft; abdomen nontender, no guarding, no abdominal mass and no ascites Skin: no rashes, warm and dry Neurologic: No focal deficits Psychiatric: A+Ox3, euthymic affect Results & Data Vital Signs (Past 12 Hours) Vital Signs Temp Pulse Pulse Resp BP BP Pulse Ox 08/20/19 15:34 36.4 C L 54 L 20 138/84 97 08/20/19 11:23 36.5 C 54 L 18 126/83 97 08/20/19 07:13 36.5 C 68 18 143/87 H 93 Resident Activity Tracking Resident Involvement: Resident Care Provided Care Provided: Adult Hospital Medicine (1) Pancreatic cancer Pancreatic malignancy location: unspecified Qualified Code(s): C25.9 - Malignant neoplasm of pancreas, unspecified (2) Hypertension Hypertension type: unspecified Qualified Code(s): I10 - Essential (primary) hypertension
--- NOTE | 2019-08-20 17:04 | Billing Data ---
Date of Service August 20, 2019 Coding Level of Care Code 44504 Subseq Hosp Care Lvl 3
--- NOTE | 2019-08-20 21:01 | Billing Data ---
Date of Service August 20, 2019 Coding Level of Care Code 39034 Subseq Hosp Care Lvl 3
[2019-08-20] MEDS: FAMOTIDINE 20 MG in SYRINGE 3 ML IV SCH (22:46)
[2019-08-21] MEDS: HYDROmorphone INJ 0.5 MG/0.5 ML SYR IV PRN (00:38)
[2019-08-21] MEDS: LACTATED RINGER'S 1,000 ML IV SCH ×3 (05:12→20:49)
[2019-08-21] MEDS: ACETAMINOPHEN 1,000 MG/100 ML VIAL IV PRN (05:12)
[2019-08-21] MEDS: BRINZOLAMIDE (AZOPT) OPS 10 ML BTL OPL SCH ×2 (09:04→20:50)
[2019-08-21] MEDS: BRIMONIDINE TARTRATE/TIMOLOL OPB SCH ×2 (09:04→20:50)
[2019-08-21] MEDS: HEPARIN SOD 5,000 UNIT/0.5 ML VIAL SQ SCH ×2 (09:05→20:50)
--- NOTE | 2019-08-21 09:33 | Student Report ---
[facility] Med Student H&P Date of Service Date of Service: August 21, 2019 ROS ROS: Denies n/v Endorses pain control: abdominal pain at 09/15 Physical Exam Physical Exam: General: Patient is a well-appearing male in no acute distress with an NG tube CV: RRR, S1 and S2 appreciated, no MRG Pulmonary: lungs clear bilaterally to auscultation Abdominal: soft, + distended, no tenderness to palpation, +hypoactive bowel sounds, biliary drain present, is draining dark green fluid. Code/VTE Code/VTE: Full code DVT prophylaxis: Heparin A&P A&P: #Duodenal Obstruction: continue to keep him NPO, continue maintenance fluids, IV Tylenol and Dilaudid prn, IV famotidine. Check on status of bed at [place]. #Pancreatic cancer: continue to monitor #HTN: continue to monitor
--- NOTE | 2019-08-21 10:50 | Medical Student Progress Note ---
Date of Service August 21, 2019 Assessment & Plan (1) Duodenal obstruction: Patient is a 64 year old male with a recent diagnosis of pancreatic cancer who presented to the the emergency department 2 days ago with a 4-day history of vomiting and abdominal pain; he has been given supportive therapy (NPO, NG tube, IV fluids, pain management) with a goal of stabilization until transfer to [facility] for further evaluation. Assessment and Plan: Duodenal Obstruction -supportive therapy: currently NPO, has NG tube in place with suction, IV fluids, IV famotidine, IV Tylenol and Dilaudid prn for pain -transfer to [facility] has been approved, awaiting bed MAG -creatinine was 1.43 on admission, 1.27 as of 08/20; was probably prerenal due to dehydration secondary to vomiting HTN -takes doxazosin at home, held due to being NPO. -BP wnl until this morning, when it was 150/92. If systolic greater than 180 with or without symptoms, consider IV Hydralazine prn Pancreatic Cancer -on round 11/15 of chemo, due for next round 08/22, but as of this morning, ca ncelled the appt. BPH -takes doxazosin at home, held due to NPO status Hyperlipidemia -no home medications Glaucoma: -continue eye drops as prescribed DVT Prophylaxis: -continue heparin for DVT prophylaxis (2) Pancreatic cancer: Pancreatic malignancy location: unspecified Qualified Code(s): C2 5.9 - Malignant neoplasm of pancreas, unspecified (3) Hypertension: Hypertension type: unspecified Qualified Code(s): I10 - Essential (primary) hypertension (4) Hyperlipidemia: Supervising Attestation Medical Student Supervision Note: I independently interviewed and examined the patient and verified the friedman history and physical, reviewed labs and image studies, discussed the case with Marizol Sanchez and agree with the findings and care plan. Subjective History of Present Illness: Patient presented to emergency department on 08/19 with 4-day history of worsening vomiting and abdominal pain. A CT scan performed in the ER suggests duodenal obstruction. The patient has pancreatic cancer, for which he is receiving surgical treatment at [facility] and chemotherapy here at the cancer center. He would prefer to receive surgical care for the obstruction at [place]. His transfer has been approved, and we are currently waiting for a bed. Review of Systems Gastrointestinal: + abdominal pain (09/15); no nausea Physical Exam Constitutional: well developed and well nourished; no acute distress NG tube in left nostril Respiratory: normal respiratory effort, lungs clear to auscultation Cardiovascular: Rate/Rhythm: regular rate and regular rhythm Heart Sounds: normal S1 and normal S2; no gallop, no murmur and no cardiac rub Gastrointestinal (Abdomen): Inspection/Auscultation: + hypoactive bowel sounds Percussion/Palpation: abdomen nontender biliary drain present, draining dark green fluid Results & Data Vital Signs (Past 12 Hours) Vital Signs Temp Pulse Resp BP Pulse Ox 08/21/19 07:14 36.5 C 58 L 18 150/92 H 94 08/20/19 22:51 36.8 C 53 L 20 137/82 97
--- NOTE | 2019-08-21 14:34 | Discharge Summary ---
Date of Service August 24, 2019 Admission HPI Per Admitting Provider Mr. Milton is a 64-year-old male with a past medical history of pancreatic adenocarcinoma, hypertension, hypercholesterolemia, BPH and obstructive sleep apnea who presents to [facility] due to a 5-day history of feeling unwell, with abdominal pain, and nausea. Today, he had 5 episodes of vomiting, without the presence of blood, which prompted him to come into the emergency department. He notes that he also has diffuse abdominal pain. He states his last bowel movement was this morning, however was smaller than usual for him. He has had poor appetite since Wednesday, and is only tolerated small amounts of soup and some water. He denies any fever or chills, or urinary symptoms. With regards to his pancreatic adenocarcinoma, this was diagnosed in May 2019. He follows with [facility], and most recently had a biliary tube replacement on 08/15/2019. He is receiving chemotherapy. He is currently on his third out of 12 cycle of chemotherapy, and is due to receive this on 08/22. Admission Exam Per Admitting Provider Constitutional: WD/WN, vitals as above NG tube in place Eyes: PERRL, conjunctivae normal, anicteric sclerae ENMT: external ear and nose normal, oropharynx normal Respiratory: normal respiratory effort, lungs clear to auscultation Cardiovascular: RRR, no murmur, no edema Gastrointestinal (Abdomen): Inspection/Auscultation: + abdomen distended Percussion/Palpation: + abdomen tender (Tender throughout abdomen); no guarding and abdomen not rigid Biliary drain in place, draining dark green/brown liquid Musculoskeletal: no cyanosis or clubbing, extremities motor strength 5/5 Skin: no rashes, warm and dry Neurologic: PERRL, EOMI, accommodation nl, no face palsy, no dysarthria Psychiatric: A+Ox3, euthymic affect Principal Diagnosis Duodenal Obstruction Discharge Exam Constitutional WD/WN, vitals as above well developed and cooperative; no acute distress Eyes PERRL, conjunctivae normal, anicteric sclerae ENMT external ear and nose normal, oropharynx normal Nose: + external nose abnormality (NG tube placement in L nostril) Neck normal visual inspection and trachea midline Respiratory normal respiratory effort, lungs clear to auscultation Auscultation: no rales, no rhonchi and no wheezes Cardiovascular RRR, no murmur, no edema Heart Sounds: normal S1 and normal S2 Gastrointestinal (Abdomen) Inspection/Auscultation: abdomen normal to inspection, + abdominal surgical drain present (percutaneous bilary catheter placed; draining green bilious fluid ) and + hypoactive bowel sounds Percussion/Palpation: abdomen soft; abdomen nontender, no guarding, abdomen not rigid, no abdominal mass and no ascites Skin no rashes, warm and dry no jaundice Neurologic PERRL, EOMI, accommodation nl, no face palsy, no dysarthria Psychiatric A+Ox3, euthymic affect Discharge Data Allergies Allergy/AdvReac Type Severity Reaction Status Date / Time aspirin AdvReac Mild Nausea Verified 08/19/19 18:06 Consultations 08/19/19 19:24 ED Decision to Admit Stat Ordered Studies 08/19/19 16:46 CT abd pelvis IV con only Stat Hospital Course (1) Duodenal obstruction: Mr. Milton is a 64-year-old male with a past medical history of pancreatic adenocarcinoma admitted 08/19/19 for evaluation of 5-day history of abdominal pain and nausea, found to have duodenal obstruction on CT. He receives his oncologic care at [facility] - now being transferred. Duodenal obstruction - CT of abdomen and pelvis on admission showed distended fluid-filled stomach, suggestive of duodenal obstruction. - it was discussed with patient that plausible cause of obstruction was proximal metastasis of known adenocarcinoma. - percutaneous biliary catheter appropriately positioned per KUB study - Kept N.p.o., NG tube in place with suction; appropriate position confirmed via Chest x-ray - IV Tylenol and Dilaudid as needed for pain, Zofran as needed for nausea - GI prophylaxis with IV famotidine -KUB dated 08/22 notes improvement of stomach distention and duodenal obstruction -was started on TPN -While waiting for transfer - GI consulted, -assessment: duodenal obstruction most likely from advancement of his pancreatic tumor -reviewed options: duodenal stent vs. bypass -recommends evaluation at [place] -in meantime, continue nasogastric decompression, acid-suppressing medication, and TPN MAG -creatinine was 1.43 on admission, has since trended downward and remains wnl -likely prerenal due to dehydration secondary to vomiting -resolved HTN -takes doxazosin at home, held due to being NPO. -If systolic greater than 180 with or without symptoms, consider IV Hydralazine prn Pancreatic Cancer -on round 11/15 of chemo, due for next round 08/22, but had to cancel due to hospitalization BPH -takes doxazosin at home, held due to NPO status Glaucoma: -continue eye drops as prescribed Obstructive sleep apnea -Wears CPAP at home, not ordered due to NG tube placement. DVT Prophylaxis: continued heparin for DVT prophylaxis inpatient FEN/GI: NG tube in place, NPO, TPN discontinued prior to DC Code Status: Full code Dispo: Transfer to [facility] (2) Pancreatic cancer: (3) Hypertension: (4) Obstructive sleep apnea: (5) BPH (benign prostatic hyperplasia): Total Time Total Time Spent Total Time Spent (In Minutes): see attending attestation Discharge Plan Discharge Items Patient Disposition: [facility] Reason For Visit: SMALL BOWEL OBSTRUCTION,MAG Discharge Diagnosis: Small Bowel Obstruction Condition on Discharge: Fair Activity: Resume your previous activity Non-emergency contact: Primary Care Provider and Oncologist Call non-emergency contact if: you have any medication questions Follow-up/Referrals: Vincent Marie MD [Primary Care Provider] - Diet: Clear liquid Diet Comment: NPO Addtl Attending Provider Instructions: You were admitted to [facility] for evaluation of abdominal pain and vomiting. A cat scan of your abdomen was ordered and you were found to have an obstruction in your small intestine, thought to be at the level of the duodenum. You were given pain medication, anti-nausea medication, and IV fluids. A nasogastric "NG" tube was also placed, which is a small tube that runs from your nose to your stomach. This tube was connected to a suction pressure, which helps bowel obstructions resolve. Given your history of pancreatic cancer, we arranged for a transfer to your normal cancer care center, [facility]. Patient is a 64 year old male with a recent diagnosis of pancreatic cancer who presented to the the emergency department on 08/19 with a 4-day history of vomiting and abdominal pain; he has been given supportive therapy (NPO, TPN, NG tube, IV fluids, pain management) with a goal of stabilization until transfer to a tertiary care center for further evaluation. Duodenal Obstruction -supportive therapy: continue NPO (ice chips allowed), TPN, IVF discontinued, has NG tube in place with suction, IV famotidine, IV Tylenol and Dilaudid prn for pain -transfer to [facility] -KUB dated 08/22 notes improvement of stomach distention and duodenal obstruction -GI consulted, appreciate recs -assessment: duodenal obstruction most likely from advancement of his pancreatic tumor -reviewed options: duodenal stent vs. bypass -recommends evaluation at [place] -in meantime, continue nasogastric decompression, acid-suppressing med ication, and TPN MAG -creatinine was 1.43 on admission, has since trended downward and remains wnl -likely prerenal due to dehydration secondary to vomiting -resolved HTN -takes doxazosin at home, held due to being NPO. -If systolic greater than 180 with or without symptoms, consider IV Hydralazine prn Pancreatic Cancer -on round 11/15 of chemo, due for next round 08/22, but had to cancel due to hospitalization BPH -takes doxazosin at home, held due to NPO status Glaucoma: -continue eye drops as prescribed DVT Prophylaxis: continued heparin for DVT prophylaxis inpatient FEN/GI: NG tube in place, NPO, TPN discontinued prior to DC Code Status: Full code Dispo: Transfer to [facility] Pending Studies at Discharge: No Stand-Alone Forms: My [facility] Skilled Items Patient informed of condition?: Yes DNR: No Discharge Level of Care: Other Communicable Disease: No Discharge Prognosis: Stable Lines: Saline Lock Urinary Catheter: No Medications and DC Order Prescriptions: New latanoprost 0.005 % Drops 1 drp OPB HS Qty: 2.5 RF: 0 Continued doxazosin 2 mg Tablet 2 mg PO HS RF: 0 Combigan 0.2-0.5 % Drops 1 drp OPB BID RF: 0 Lumigan 0.01 % Drops 1 drp OPB PM RF: 0 Discharge Orders: Discharge Order (Routine); Ordered 08/24/19 Ordered By: Jorge Martell Admission Data Admit Date/Time: 08/19/19 20:21 Attending Provider: Elizabeth Heredia Admit Provider: Dulce Valdivia Primary Care Provider: Vincent Marie Other Providers: Roberto Shay ; Yeison Pablo ; Kashif Frederick ; Guru Kennedy ; Mike Parrish Supervising Physician Co-Signing Physician Notes Resident Physician Supervision Note: I independently interviewed and examined the patient and verified the friedman history and physical, reviewed labs and image studies, discussed the case with the resident Dr. Martell and agree with the findings and care plan. Time spent in discharge 40 min
[2019-08-21] MEDS: LATANOPROST 0.005% OP SOLN 2.5 ML BTL OPB SCH (20:50)
[2019-08-21] MEDS: FAMOTIDINE 20 MG in SYRINGE 3 ML IV SCH (20:54)
[2019-08-22] MEDS: LACTATED RINGER'S 1,000 ML IV SCH ×2 (04:26→12:43)
--- NOTE | 2019-08-22 07:04 | XRay Report ---
KUB HISTORY: Status post placement of enteric tube check NG tube COMPARISON: KUB 08/19/2019, CT abdomen and pelvis 08/19/2019 FINDINGS: There is marked gaseous distention of the stomach which measures up to 15.2 cm transversely . Tip of enteric tube terminates within the proximal gastric body. Bowel gas pattern appears nonobstr uctive. Retained enteric contrast noted within the colon. There is no organomegaly. No renal calculi . No ureteral calculi. No pneumoperitoneum or pneumatosis. Degenerative changes of the spine. No frac ture. IMPRESSION: 1. Distal tip of enteric tube terminates in the proximal gastric body. 2. Marked gaseous distention of the stomach. Correlate clinically to exclude gastric outlet obstructi on. 3. Nonobstructive bowel gas pattern. Electronically signed by: Grayson Ferrara M.D. 08/22/2019 7:03 AM
[2019-08-22] MEDS ORDERED: TPN/PPN CONSULT PHARMACY STA (07:07)
[2019-08-22] MEDS ORDERED: DEXTROSE 10% 1,000 ML IV SCH (07:15)
[2019-08-22] MEDS ORDERED: TPN/PPN CONSULT PHARMACY PRN (07:16)
[2019-08-22] MEDS ORDERED: DEXTROSE 10% 1,000 ML IV PRN (07:30)
--- NOTE | 2019-08-22 07:35 | XRay Report ---
XR chest 1V portable CLINICAL HISTORY: 64 years-old Male presenting with iv placement check. TECHNIQUE: Portable upright AP view of the chest was obtained. COMPARISON: 08/19/2019. FINDINGS: Nasogastric tube descends below the diaphragm, terminus not visualized within the [id number]. Left internal jugular Mediport terminates at the superior cavoatrial junction. Cardiac silhouette top nor mal in prominence possibly in part due to mildly low lung volumes with hypoventilatory changes. Left mid lung nodule now appears as a bandlike opacity. No other opacity. No large effusion or pneumothora x. Degenerative changes of the thoracic spine. Gaseous distended stomach. IMPRESSION: 1. Unchanged position of the left IJ Mediport. 2. Appropriately positioned nasogastric tube. 3. Left midlung atelectasis associated with the left midlung nodule. Electronically signed by: Abel Heart M.D. 08/22/2019 7:34 AM
[2019-08-22 07:51] LABS: BUN Creatinine Ratio 13.2 (10-20); Calcium 8.2 mg/dl (8.5-10.1); Creatinine Clr Calc Pharmacy 86.3 ml/min; Est GFR (African American) 93.1; Est GFR (Non-African American) 80.3; Magnesium 1.9 mg/dl (1.8-2.4); Potassium 3.7 mmol/L (3.5-5.1)
[2019-08-22 07:57] LABS: Bilirubin,Total 0.5 mg/dl (0.2-1); Phosphorus 2.6 mg/dl (2.5-4.9); Prealbumin 17.8 mg/dl (20-40)
[2019-08-22] MEDS: HEPARIN SOD 5,000 UNIT/0.5 ML VIAL SQ SCH ×2 (08:42→20:55)
[2019-08-22] MEDS: BRIMONIDINE TARTRATE/TIMOLOL OPB SCH ×2 (08:43→20:55)
[2019-08-22] MEDS: BRINZOLAMIDE (AZOPT) OPS 10 ML BTL OPL SCH ×2 (08:43→20:55)
--- NOTE | 2019-08-22 11:37 | XRay Report ---
KUB CLINICAL HISTORY: Bowel obstruction. FINDINGS: 2 AP supine abdominal radiographs are compared to study performed earlier the same day 08/06 and correlated with abdominal CT dated 08/19/2019. Enteric tube projects over the stomach. Gas eous distention of the stomach is modestly improved from today's earlier examination. There is a nono bstructed abdominal bowel gas pattern. Enteric contrast is present in the colon. No evidence of intra peritoneal free air is seen on these supine images. Calcified splenic granulomas are again seen in th e left upper quadrant. The bony structures appear intact. IMPRESSION: 1. An enteric tube is unchanged in position. 2. There is no radiographic evidence of small bowel obstruction. 3. Distention of the stomach has modestly improved from previous. Electronically signed by: Anjel Cerda M.D. 08/22/2019 11:36 AM
[2019-08-22 12:20] LABS: Hematocrit (blood only) 35.2 % (42-52); Hemoglobin 11.8 g/dL (14.0-18.0); Mean Corpuscular Hemoglobin 30.1 pg (25-34); Mean Corpuscular Hgb Conc 33.5 g/dL (32-36); Mean Corpuscular Volume 89.8 fL (80-100); RDW Standard Deviation 48.7 fL (36.4-46.3); Red Blood Count 3.92 M/uL (4.7-6.1); White Blood Count 2.81 K/uL (4.8-10.8)
[2019-08-22 12:25] LABS: Mean Platelet Volume 8.8 fL (7.4-10.4); Platelet Count 98 K/uL (130-400)
[2019-08-22 12:40] LABS: Eosinophils # (auto) 0.04 K/uL (0-0.5); Eosinophils % (auto) 1.4 %; Immature Granulocytes # (auto) 0.01 K/uL (0.00-0.02); Immature Granulocytes % (auto) 0.4 %; Lymphocytes % (auto) 42.7 %; Monocytes # (auto) 0.41 K/uL (0.11-0.59); Monocytes % (auto) 14.6 %; Neutrophils # (auto) 1.15 K/uL (1.4-6.5); Neutrophils % (auto) 40.9 %
[2019-08-22 12:47] LABS: Albumin Level 2.4 gm/dl (3.4-5.0); BUN Creatinine Ratio 13.4 (10-20); Calcium 7.9 mg/dl (8.5-10.1); Creatinine Clr Calc Pharmacy 88.9 ml/min; Est GFR (African American) 96.6; Est GFR (Non-African American) 83.3; Potassium 3.8 mmol/L (3.5-5.1)
[2019-08-22 12:49] LABS: Albumin Globulin Ratio 0.8 (0.9-2); Bilirubin,Total 0.4 mg/dl (0.2-1); Globulin 3.1 gm/dl (2.5-4.0); Total Protein 5.5 gm/dl (6.4-8.2)
--- NOTE | 2019-08-22 15:43 | Pharmacy Report ---
Pharmacy PN Initial Consult - Date of Service August 22, 2019 - Scope Pharmacy has been consulted to manage parenteral nutrition orders and order appropriate labs. As part of the Nutrition Support Team guidelines, pharmacy will work in conjunction with dietary when determining the patients caloric needs. - Subjective The patient is a 64 year old M admitted on 08/19/19 20:21 for SMALL BOWEL OBSTRUCTION,MAG. Patient is to receive parenteral nutrition for obstruction, NPO. Pertinent PMH: pancreatic CA, NPO status - Objective Height: 5 ft 9 in Weight: 93 kg Intake & Output (Last 24Hrs): Intake & Output 08/20/19 08/21/19 08/22/19 08/23/19 06:59 06:59 06:59 06:59 Intake Total 2605.000 / 2605.000 3127.084 / 3127.084 2885.416 / 2885.416 1000 / 1000 Output Total 500 / 500 1100 / 1100 1560 / 1560 Balance 2605.000 / 2605.000 2627.084 / 2627.084 1785.416 / 1785.416 -560 / -560 Weight 91.8 kg 93 kg 93 kg Laboratory Data (Last 24 Hrs):: 08/22/19 08/22/19 07:21 12:12 Sodium 140 138 Potassium 3.7 3.8 Chloride 109 H 108 H Carbon Dioxide 22 25 BUN 13 13 Creatinine 1.00 0.97 Glucose 79 76 Calcium 8.2 L 7.9 L Phosphorus 2.6 Magnesium 1.9 Total Bilirubin 0.5 0.4 AST 15 17 ALT 24 24 Alkaline Phosphatase 92 91 Albumin 2.4 L Prealbumin 17.8 L Triglycerides 134 Nutrition Assessment:: Please refer to the Notes section of the EMR for the most recent supervisor [employer] note. - Assessment F: LR @125 ml/hr, to be discontinued per hospitalist team when tpn starts E: WNL except Cl high 109 N: Patient NPO, has NG for suction, prealbumin 17.8 - Plan For day 1 of PN administration, the following will be ordered: Macronutrients Amino acids 60 grams/day Dextrose 150 grams/day Lipids 25 grams/day Micronutrients Combined electrolytes 30 mL - contains 35 mEq Na, 20 meq K, 4.5 mEq Ca, 5 mEq Mg, 35 mEq Cl, 29.5 mEq acetate per 20 mL Sodium phosphate 15 MMol Sodium acetate 40 mEq Multivitamins 10 mL Trace Elements 10 mL Additional additives: pepcid 20 mg Total volume 1008 mL to be infused over 24 hrs will provide 1000 kcal/day to be given through [employer] mediport Labs to be ordered per PN order protocol Pharmacy will follow and adjust parenteral nutrition orders on a daily basis. Thank you.
[2019-08-22] MEDS ORDERED: TPN IV SCH (16:00)
[2019-08-22] MEDS ORDERED: CENTRAL PN IV SCH (16:00)
--- NOTE | 2019-08-22 16:18 | Medical Student Progress Note ---
Date of Service August 22, 2019 Assessment & Plan (1) Duodenal obstruction: Patient is a 64 year old male with a recent diagnosis of pancreatic cancer who presented to the the emergency department with a 4-day history of vomiting and abdominal pain; he has been given supportive therapy (NPO, NG tube, IV fluids, pain management) with a goal of stabilization until transfer to [facility] for further evaluation. Duodenal Obstruction -supportive therapy: currently NPO (ice chips allowed), starting TPN, IVF discontinued, has NG tube in place with suction, IV fluids, IV famotidine, IV Tylenol and Dilaudid prn for pain -transfer to [facility] has been approved, awaiting bed -tried to transfer to [place], was not accepted -considered leaving AMA, ultimately opted to stay here and receive care -talked to patient's [id number], Dr. Haines, who is a plastic surgeon, who also states that with his connections at [facility], has been struggling to find a bed for patient -KUB dated today notes improvement of stomach distention and duodenal obstruction -GI consulted, appreciate recs -assessment: duodenal obstruction most likely from advancement of his pancreatic tumor -reviewed options: duodenal stent vs. bypass -recommends evaluation at [place] -in meantime, continue nasogastric decompression, acid-suppressing medication, and TPN MAG -creatinine was 1.43 on admission, continues to trend downward (1.00 today) -probably prerenal due to dehydration secondary to vomiting -resolved HTN -takes doxazosin at home, held due to being NPO. -If systolic greater than 180 with or without symptoms, consider IV Hydralazine prn Pancreatic Cancer -on round 11/15 of chemo, due for next round 08/22, but had to cancel due to hospitalization BPH -takes doxazosin at home, held due to NPO status Glaucoma: -continue eye drops as prescribed DVT Prophylaxis: continue heparin for DVT prophylaxis FEN/GI: NG tube in place, NPO, TPN Code Status: Full code Dispo: currently opting to stay in the hospital until a bed may be made availa ble at [facility] (2) Pancreatic cancer: Pancreatic malignancy location: unspecified Qualified Code(s): C25.9 - Malignant neoplasm of pancreas, unspecified (3) Hypertension: Hypertension type: unspecified Qualified Code(s): I10 - Essential (primary) hypertension (4) Hyperlipidemia: (5) BPH (benign prostatic hyperplasia): (6) DVT prophylaxis: Supervising Attestation Medical student Supervision Note: I independently interviewed and examined the patient and verified the friedman history and physical, reviewed labs and image studies, discussed the case with Marizol Sanchez and agree with the findings and care plan. Subjective Patient presented to emergency department on 08/19 with 4-day history of worsening vomiting and abdominal pain. A CT scan performed in the ER suggests duodenal obstruction. The patient has pancreatic cancer, for which he is receiving surgical treatment at [facility] and chemotherapy here at the cancer center. He would prefer to receive surgical care for the obstruction at [place]. His transfer has been approved, but we have been waiting for a bed. Review of Systems Gastrointestinal: + abdominal pain (well-controlled); no nausea Physical Exam Constitutional: well developed and well nourished; no acute distress ENMT: Nose: + external nose abnormality (NG tube placed in left nostril) Respiratory: normal respiratory effort, lungs clear to auscultation Cardiovascular: Rate/Rhythm: regular rate and regular rhythm Heart Sounds: normal S1 and normal S2; no gallop, no murmur and no cardiac rub Gastrointestinal (Abdomen): Inspection/Auscultation: + hypoactive bowel sounds Percussion/Palpation: abdomen nontender Results & Data Vital Signs (Past 12 Hours) Vital Signs Temp Pulse Resp BP Pulse Ox 08/22/19 15:06 36.9 C 54 L 18 137/80 95 08/22/19 11:48 36.3 C L 64 18 133/87 93 08/22/19 07:26 37.2 C 69 18 159/83 H 95
--- NOTE | 2019-08-22 16:53 | Consultation Report ---
DATE OF CONSULTATION: 08/22/2019 GASTROINTESTINAL CONSULT NOTE REASON FOR EVALUATION: Duodenal obstruction with pancreatic cancer. HISTORY OF PRESENT ILLNESS: The patient is a 64-year-old diagnosed with a pancreatic adenocarcinoma in May. He recently had a percutaneous biliary stent placed in the left lobe by [facility] where he has been receiving his care. For the past week and a half, the patient has been vomiting, but over the last 4 days, it has been accelerating as he has been able to keep nothing down at all. He was brought to the Emergency Room and found to have a markedly dilated stomach full of fluid and a cut off in the second portion of the duodenum where it appears that the pancreatic cancer has invaded the duodenum and obstructed it. Since then, he has had a nasogastric tube placed with decompression and he is no longer vomiting and is feeling a little bit better. He has also been started on IV TPN while awaiting transfer to [facility]. GI consultation has been obtained to review his options. PAST MEDICAL HISTORY: Remarkable for hypertension, hyperlipidemia, benign prostatic hypertrophy, obstructive sleep apnea and pancreatic cancer. MEDICATIONS: Include chemotherapy, he is getting every other week and has received 3 cycles out of 12. ALLERGIES: ASPIRIN. SOCIAL HISTORY: The patient is , has a son. He is employed. Feels safe at home, does not smoke. Drinks beer occasionally. REVIEW OF SYSTEMS: Positive for abdominal pain and fatigue. PHYSICAL EXAMINATION: The patient is sitting in bed with nasogastric tube in his left naris. There is a percutaneous biliary drain in the left lobe of the liver with a green bilious material in the bag. His abdomen is soft and nontender. It is not significantly dilated. IMPRESSION AND PLAN: The patient has a duodenal obstruction most likely from advancement of his pancreatic tumor. This is not a good prognostic sign. I reviewed with him the potential options including passing a guidewire through and dilating the stenosis and placing a stent. If this is not successful, then he may be amenable to a bypass operation to bypass the obstruction. I would recommend both of these options to be considered at [facility]. In the meantime, we will continue nasogastric decompression. We will keep him on acid-suppressing medication and total parenteral nutrition so that his nutritional status is maintained.
[2019-08-22] MEDS: LATANOPROST 0.005% OP SOLN 2.5 ML BTL OPB SCH (20:55)
[2019-08-22] MEDS ORDERED: FAMOTIDINE 20 MG in SYRINGE 3 ML IV SCH (21:00)
[2019-08-23 06:37] LABS: BUN Creatinine Ratio 13.2 (10-20); Calcium 8.3 mg/dl (8.5-10.1); Creatinine Clr Calc Pharmacy 84.6 ml/min; Est GFR (African American) 90.9; Est GFR (Non-African American) 78.4; Magnesium 2.2 mg/dl (1.8-2.4); Phosphorus 2.5 mg/dl (2.5-4.9); Potassium 3.5 mmol/L (3.5-5.1)
[2019-08-23] MEDS: BRIMONIDINE TARTRATE/TIMOLOL OPB SCH ×2 (08:42→21:08)
[2019-08-23] MEDS: BRINZOLAMIDE (AZOPT) OPS 10 ML BTL OPL SCH ×2 (08:42→21:08)
[2019-08-23] MEDS: HEPARIN SOD 5,000 UNIT/0.5 ML VIAL SQ SCH ×2 (08:43→21:08)
--- NOTE | 2019-08-23 09:24 | Medical Student Progress Note ---
Date of Service August 23, 2019 Assessment & Plan (1) Duodenal obstruction: Patient is a 64 year old male with a recent diagnosis of pancreatic cancer who presented to the the emergency department on 08/19 with a 4-day history of vomiting and abdominal pain; he has been given supportive therapy (NPO, TPN, NG tube, IV fluids, pain management) with a goal of stabilization until transfer to a tertiary care center for further evaluation. Duodenal Obstruction -supportive therapy: continue NPO (ice chips allowed), TPN, IVF discontinued, has NG tube in place with suction, IV famotidine, IV Tylenol and Dilaudid prn for pain -transfer to [facility] has been approved, still awaiting bed -KUB dated 08/22 notes improvement of stomach distention and duodenal obstruction -GI consulted, appreciate recs -assessment: duodenal obstruction most likely from advancement of his pancreatic tumor -reviewed options: duodenal stent vs. bypass -recommends evaluation at [place] -in meantime, continue nasogastric decompression, acid-suppressing me dication, and TPN MAG -creatinine was 1.43 on admission, has since trended downward and remains wnl -likely prerenal due to dehydration secondary to vomiting -resolved HTN -takes doxazosin at home, held due to being NPO. -If systolic greater than 180 with or without symptoms, consider IV Hydralazine prn Pancreatic Cancer -on round 11/15 of chemo, due for next round 08/22, but had to cancel due to hospitalization BPH -takes doxazosin at home, held due to NPO status Glaucoma: -continue eye drops as prescribed DVT Prophylaxis: continue heparin for DVT prophylaxis FEN/GI: NG tube in place, NPO, TPN Code Status: Full code Dispo: currently opting to stay in the hospital until a bed may be made available at a tertiary care center Present on Admission?: Yes (2) Pancreatic cancer: Pancreatic malignancy location: unspecified Qualified Code(s): C25.9 - Malignant neoplasm of pancreas, unspecified (3) Hypertension: Hypertension type: unspecified Qualified Code(s): I10 - Essential (primary) hypertension (4) BPH (benign prostatic hyperplasia): (5) DVT prophylaxis: Supervising Attestation Medical Student Supervision Note: I independently interviewed and examined the patient and verified the friedman history and physical, reviewed labs and image studies, discussed the case with Marizol Sanchez and agree with the findings and care plan. awaiting bed availability for transfer to tertiary care for possible duodenal stent placement/surgery Subjective Patient presented to emergency department on 08/19 with 4-day history of worsening vomiting and abdominal pain. A CT scan performed in the ER suggests duodenal obstruction. The patient has pancreatic cancer, for which he is receiving surgical treatment at [facility] and chemotherapy here at the cancer center. He would prefer to receive surgical care for the obstruction at [place]. His transfer has been approved, but we have been waiting for a bed. We are currently trying to see if [place] will take him, but they also have no beds. Started TPN yesterday, is tolerating well. Says he feels better with it. Review of Systems Respiratory: no cough and no dyspnea Gastrointestinal: + abdominal pain ((09/15)); no nausea Physical Exam Constitutional: well developed and well nourished; no acute distress ENMT: Nose: + external nose abnormality (NG tube placed in left nostril) Respiratory: no respiratory distress Auscultation: + wheezes (lower right lobe) Cardiovascular: Rate/Rhythm: regular rate and regular rhythm Heart Sounds: normal S1 and normal S2; no gallop, no murmur and no cardiac rub Gastrointestinal (Abdomen): Inspection/Auscultation: + hypoactive bowel sounds; abdomen not distended Percussion/Palpation: abdomen soft; abdomen nontender biliary drain present, draining dark green fluid Results & Data Vital Signs (Past 12 Hours) Vital Signs Temp Pulse Resp BP Pulse Ox 08/23/19 07:00 36.5 C 65 18 143/88 H 95 08/23/19 04:14 36.9 C 73 18 119/80 94 08/22/19 23:00 36.8 C 55 L 18 148/81 H 95
[2019-08-23] MEDS ORDERED: TPN IV SCH (16:00)
[2019-08-23] MEDS ORDERED: CENTRAL PN IV SCH (16:00)
[2019-08-23] MEDS: LATANOPROST 0.005% OP SOLN 2.5 ML BTL OPB SCH (21:08)
[2019-08-24] MEDS: HEPARIN SOD 5,000 UNIT/0.5 ML VIAL SQ SCH ×2 (08:51→21:18)
[2019-08-24] MEDS: BRIMONIDINE TARTRATE/TIMOLOL OPB SCH ×2 (08:51→20:29)
[2019-08-24] MEDS: BRINZOLAMIDE (AZOPT) OPS 10 ML BTL OPL SCH ×2 (08:52→20:29)
[2019-08-24 09:03] LABS: BUN Creatinine Ratio 17.1 (10-20); Est GFR (African American) 81.2; Magnesium 2.3 mg/dl (1.8-2.4); Potassium 3.5 mmol/L (3.5-5.1)
[2019-08-24 09:13] LABS: Phosphorus 3.2 mg/dl (2.5-4.9)
--- NOTE | 2019-08-24 11:41 | Medical Student Progress Note ---
Date of Service August 24, 2019 Assessment & Plan (1) Duodenal obstruction: Patient is a 64 year old male with a recent diagnosis of pancreatic cancer who presented to the the emergency department on 08/19 with a 4-day history of vomiting and abdominal pain; he has been given supportive therapy (NPO, TPN, NG tube, IV fluids, pain management) with a goal of stabilization until transfer to a tertiary care center for further evaluation. Duodenal Obstruction -supportive therapy: continue NPO (ice chips allowed), TPN, IVF discontinued, has NG tube in place with suction, IV famotidine, IV Tylenol and Dilaudid prn for pain -transfer to [facility] has been approved, bed has been secured -KUB dated 08/22 notes improvement of stomach distention and duodenal obstruction -GI consulted, appreciate recs -assessment: duodenal obstruction most likely from advancement of his pancreatic tumor -reviewed options: duodenal stent vs. bypass -recommends evaluation at [place] -in meantime, continue nasogastric decompression, acid-suppressing medication, and TPN MAG -creatinine was 1.43 on admission, has since trended downward and remains wnl -likely prerenal due to dehydration secondary to vomiting -resolved HTN -takes doxazosin at home, held due to being NPO. -If systolic greater than 180 with or without symptoms, consider IV Hydralazine prn Pancreatic Cancer -on round 11/15 of chemo, due for next round 08/22, but had to cancel due to hospitalization BPH -takes doxazosin at home, held due to NPO status Glaucoma: -continue eye drops as prescribed DVT Prophylaxis: continue heparin for DVT prophylaxis FEN/GI: NG tube in place, NPO, TPN Code Status: Full code Dispo: being transferred to [facility] Present on Admission?: Yes (2) Pancreatic cancer: Pancreatic malignancy location: unspecified Qualified Code(s): C25.9 - Malignant neoplasm of pancreas, unspecified Present on Admission?: Yes (3) Hypertension: Hypertension type: unspecified Qualified Code(s): I10 - Essential (primary) hypertension Present on Admission?: Yes (4) BPH (benign prostatic hyperplasia): Present on Admission?: Yes (5) DVT prophylaxis: Present on Admission?: Yes Subjective Patient presented to emergency department on 08/19 with 4-day history of worsening vomiting and abdominal pain. A CT scan performed in the ER suggests duodenal obstruction. The patient has pancreatic cancer, for which he is receiving surgical treatment at [facility] and chemotherapy here at the cancer center. He would prefer to receive surgical care for the obstruction at [place]. His transfer has been approved, but we have been waiting for a bed. We are currently trying to see if [place] will take him, but they also have no beds. Started TPN yesterday, is tolerating well. Says he feels better with it. Review of Systems Gastrointestinal: + abdominal pain ((09/15)); no nausea Physical Exam Constitutional: well developed and well nourished; no acute distress ENMT: Nose: + external nose abnormality (NG tube placed in left nostril) Respiratory: normal respiratory effort, lungs clear to auscultation no respiratory distress Cardiovascular: Rate/Rhythm: regular rate and regular rhythm Heart Sounds: normal S1 and normal S2; no gallop, no murmur and no cardiac rub Gastrointestinal (Abdomen): Inspection/Auscultation: + hypoactive bowel sounds; abdomen not distended Percussion/Palpation: abdomen soft; abdomen nontender Results & Data Vital Signs (Past 12 Hours) Vital Signs Temp Pulse Resp BP BP Pulse Ox 08/24/19 11:24 36.5 C 64 18 107/73 94 08/24/19 07:10 37.0 C 57 L 18 129/82 92
[2019-08-24] MEDS ORDERED: TPN IV SCH (16:00)
[2019-08-24] MEDS ORDERED: CENTRAL PN IV SCH (16:00)
--- NOTE | 2019-08-24 16:19 | Medical Student Progress Note ---
Date of Service August 24, 2019 Assessment & Plan (1) Duodenal obstruction: Patient is a 64 year old male with a recent diagnosis of pancreatic cancer who presented to the the emergency department on 08/19 with a 4-day history of vomiting and abdominal pain; he has been given supportive therapy (NPO, TPN, NG tube, IV fluids, pain management) with a goal of stabilization until transfer to a tertiary care center for further evaluation. Duodenal Obstruction -supportive therapy: continue NPO (ice chips allowed), TPN, IVF discontinued, has NG tube in place with suction, IV famotidine, IV Tylenol and Dilaudid prn for pain -transfer to [facility] has been approved, bed has been made available, pending transfer -KUB dated 08/22 notes improvement of stomach distention and duodenal obstruction -GI consulted, appreciate recs -assessment: duodenal obstruction most likely from advancement of his pancreatic tumor -reviewed options: duodenal stent vs. bypass -recommends evaluation at [place] -in meantime, continue nasogastric decompression, acid-suppressing medication, and TPN MAG -creatinine was 1.43 on admission, has since trended downward and remains wnl -likely prerenal due to dehydration secondary to vomiting -resolved HTN -takes doxazosin at home, held due to being NPO. -If systolic greater than 180 with or without symptoms, consider IV Hydralazine prn Pancreatic Cancer -on round 11/15 of chemo, due for next round 08/22, but had to cancel due to hospitalization BPH -takes doxazosin at home, held due to NPO status Glaucoma: -continue eye drops as prescribed DVT Prophylaxis: continue heparin for DVT prophylaxis FEN/GI: NG tube in place, NPO, TPN Code Status: Full code Dispo: pending transfer to [facility] Present on Admission?: Yes (2) Pancreatic cancer: Pancreatic malignancy location: unspecified Qualified Code(s): C25.9 - Malignant neoplasm of pancreas, unspecified Present on Admission?: Yes (3) Hypertension: Hypertension type: unspecified Qualified Code(s): I10 - Essential (primary) hypertension Present on Admission?: Yes (4) BPH (benign prostatic hyperplasia): Present on Admission?: Yes (5) DVT prophylaxis: Present on Admission?: Yes Subjective Patient presented to emergency department on 08/19 with 4-day history of worsening vomiting and abdominal pain. A CT scan performed in the ER suggests duodenal obstruction. The patient has pancreatic cancer, for which he is receiving surgical treatment at [facility] and chemotherapy here at the cancer center. He would prefer to receive surgical care for the obstruction at [place]. His transfer has been approved, but we have been waiting for a bed. We are currently trying to see if [place] will take him, but they also have no beds. Started TPN yesterday, is tolerating well. Says he feels better with it. Review of Systems Constitutional: no fever and no chills Gastrointestinal: + abdominal pain ((09/15)); no nausea some pain and discomfort around biliary drain site Physical Exam Respiratory: Auscultation: lungs clear to auscultation bilaterally Cardiovascular: RRR, no murmur, no edema Gastrointestinal (Abdomen): normal bowel sounds, soft, nontender, no hepatosplenomegaly Inspection/Auscultation: abdomen not distended biliary drain in place, draining dark green fluid, erythema around the site Results & Data Vital Signs (Past 12 Hours) Vital Signs Temp Pulse Resp BP BP Pulse Ox 08/24/19 15:09 36.6 C 59 L 18 127/85 95 08/24/19 11:24 36.5 C 64 18 107/73 94 08/24/19 07:10 37.0 C 57 L 18 129/82 92
[2019-08-24] MEDS: LATANOPROST 0.005% OP SOLN 2.5 ML BTL OPB SCH (20:29)
[2019-08-24 23:43] VITALS: BP 137/89; PULSE 78; TEMP 98.6; O2SAT 95
== END 2019-08-25 03:40 | disposition short-term general hospital (02) | DRG 381 ==
LOC: ED 16:20 → SUATTDRO 20:21 → 2W 20:21